=== PATIENT | male | born 1935 | race Caucasian/White ===

== ENCOUNTER 2018-09-15 07:59 | Day surgery (SDC) | payer MEDICARE ==
[~2018-09-15] VITALS: Ht 182.9 cm; Wt 69.4 kg
[~2018-09-15 07:59] MED LIST: LISI5 PO
[2018-09-15] MEDS ORDERED: ERGO400 (08:40)
[2018-09-15] MEDS ORDERED: Flonase 0.05% N16 GM (08:41)
[2018-09-15] MEDS ORDERED: ASPI81CH (08:41)
[2018-09-15] MEDS ORDERED: ALLEGRA ALLERG180 MG (08:41)
[2018-09-15] MEDS ORDERED: LISI5 (08:41)
--- NOTE | 2018-09-15 09:35 | NUR ---
09/15/18 0935 Sosa Kendrick PT SUCTIONED ORALLY DURING PROCEDURE. SMALL AMOUNT OF YELLOW BILE CONTENTS.
--- NOTE | 2018-09-15 10:06 | NUR ---
09/15/18 1006 Sosa Kendrick PT VOMIT X1 IN STEP DOWN. SMALL AMOUNT OF YELLOW BILE.
== END 2018-09-15 11:15 | disposition home or self-care (01) ==
LOC: ORSCSDS 07:59
PROVIDERS: Surgery
PROC: 0DBL8ZX Excision of Transverse Colon, Via Natural or Artificial Opening Endoscopic, Diagnostic (ICD-10-PCS; principal; 2018-09-15 09:15)
DX: K62.5 Hemorrhage of anus and rectum (principal); D12.3 Benign neoplasm of transverse colon; K44.9 Diaphragmatic hernia without obstruction or gangrene; I10 Essential (primary) hypertension; K21.9 Gastro-esophageal reflux disease without esophagitis; E78.5 Hyperlipidemia, unspecified; K57.30 Diverticulosis of large intestine without perforation or abscess without bleeding; Z87.891 Personal history of nicotine dependence; Z79.899 Other long term (current) drug therapy; Z79.82 Long term (current) use of aspirin
CPT/HCPCS: 88305; J2405; J7120

== ENCOUNTER 2019-12-23 17:36 | Emergency (ER) | payer MEDICARE ==
[~2019-12-23] VITALS: Ht 180.3 cm; Wt 63.0 kg
[~2019-12-23 17:36] MED LIST changes: +ALLEGRA ALLERG180 MG; +ASPI81CH; +ERGO400; +Flonase 0.05% N16 GM; +LISI5
[2019-12-23 20:26] LABS: Source, Urine Clean Catch
[2019-12-23 20:28] LABS: Bilirubin, Urine Neg (Neg); Blood, Urine Neg (Neg); Glucose Qualitative, Urine Neg (Neg); Ketones, Urine 1+ (Neg); Leukocyte Esterase, Urine Neg (Neg); Nitrite, Urine Neg (Neg); Protein, Urine Neg (Neg); Specific Gravity, Urine 1.015 (1.003-1.022); Urobilinogen, Urine NORM (Normal)
[2019-12-23 20:29] LABS: Appearance, Urine Clear (Clear); Color, Urine Yellow (P-Yellow)
== END 2019-12-23 20:29 | disposition home or self-care (01) ==
LOC: ER 17:36
PROVIDERS: Physician Assistant
DX: R10.32 Left lower quadrant pain (principal); R29.898 Other symptoms and signs involving the musculoskeletal system; E87.1 Hypo-osmolality and hyponatremia; C85.90 Non-Hodgkin lymphoma, unspecified, unspecified site; Z91.030 Bee allergy status; Z79.899 Other long term (current) drug therapy; Z79.82 Long term (current) use of aspirin
CPT/HCPCS: 74177; 81003; 83690; 96360-59; 99284-25; J7030; Q9967

== ENCOUNTER 2020-01-04 08:33 | Day surgery (SDC) | payer MEDICARE ==
--- NOTE | 2020-01-04 10:12 | NUR ---
PT AWAKE, ALERT UPON ARRIVAL TO STEP DOWN RECOVERY. C/O SOME DISCOMFORT IN HIS LEG. HAS PAIN PILLS AT HOME AND STATES HE WILL TAKE THESE WHEN HE LEAVES.
--- NOTE | 2020-01-04 10:20 | NUR ---
PT SPENDING MAJORITY OF TIME ON PHONE TALKING TO FRIENDS/FAMILY. NO C/O AT THIS TIME.
--- NOTE | 2020-01-04 10:27 | NUR ---
NEURO CHECK DONE. NOTED SIGNIFICANT LEFT LEG WEAKNESS. PT STATES THIS IS HIS BASELINE, BUT WILL CONTINUE TO MONITOR DURING RECOVERY PERIOD.
--- NOTE | 2020-01-04 10:33 | NUR ---
PT GIVEN HEADPHONES AND REMOTE FOR TV. NO C/O AT THIS TIME.
--- NOTE | 2020-01-04 10:38 | NUR ---
NEURO CHECK UNCHANGED.
--- NOTE | 2020-01-04 11:03 | NUR ---
REVIEWED DISCHARGE INSTRUCTIONS WITH PATIENT WHO VERBALIZES UNDERSTANDING OF ALL INSTRUCTIONS GIVEN. PT NOTIFYING TO COME PICK HIM UP AT 1120. PT CONTINUES TO HAVE NO C/O. NEURO CHECK REVEALS INCREASED MOVEMENT TO LEFT LOWER EXTREMITY. NO NUMBNESS OR TINGLING NOTED.
--- NOTE | 2020-01-04 11:07 | NUR ---
SAT AT EDGE OF BED WITHOUT DIFFICULTY. STOOD BUT UNABLE TO BEAR WEIGHT ON LEFT LEG AT THIS TIME. ASSISTED BACK TO BED AND WILL ATTEMPT STANDING AGAIN IN APPROX 20 MINUTES. UPDATED BY PATIENT.
--- NOTE | 2020-01-04 11:43 | NUR ---
POSITION CHANGES WITH ASSISTANCE OF THIS RN. NEEDS ASSISTANCE MOVING LEFT LEG. PT STATES THIS IS NORMAL FOR HIM.
--- NOTE | 2020-01-04 12:43 | NUR ---
PT DISCHARGED HOME. STAND TEST SUCCESSFUL - ABLE TO STEP AND MOVE INTO WHEELCHAIR. MOVEMENT TO LEFT LEG MUCH IMPROVED. REVIEWED DC INSTRUCTIONS WITH WHEN PATIENT TAKEN OUT TO CAR. SHE VERBALIZED UNDERSTANDING OF ALL INSTRUCTIONS GIVEN. PT ABLE TO GET INTO VEHICLE WITH MINIMAL ASSIST FROM THIS RN. INSTRUCTED TO BE ON PATIENT'S WEAKER SIDE AND ASSIST INTO HOUSE FOR SAFETY. SHE STATES SHE WILL DO THIS.
[2020-01-05 15:28] LABS: Performing Lab SYMBIODX; Test Name EMBEDDED TISSUE
== END 2020-01-04 22:41 | disposition home or self-care (01) ==
LOC: CT 08:33
PROVIDERS: Internal Medicine Hematology & Oncology
DX: C83.36 Diffuse large B-cell lymphoma, intrapelvic lymph nodes (principal); I10 Essential (primary) hypertension; E78.5 Hyperlipidemia, unspecified; K21.9 Gastro-esophageal reflux disease without esophagitis; N40.0 Benign prostatic hyperplasia without lower urinary tract symptoms; Z87.891 Personal history of nicotine dependence; Z79.899 Other long term (current) drug therapy
CPT/HCPCS: 49180; 77012

== ENCOUNTER → 2020-01-09 | Outpatient (CLI) | payer MEDICARE ==
[~2020-01-09] MED LIST changes: +NYST100000 PO; +XARELTO15 MG PO
[2020-01-09 17:18] LABS: Alanine Aminotransfer (ALT/SGP 27 U/L (12-78); Albumin, Blood 2.7 g/dL (3.4-5.0); Albumin/Globulin Ratio 0.8 (0.8-1.8); Alk Phos 79 U/L (50-136); Anion Gap 9 mmol/L (6-16); Aspartate Aminotrans (AST/SGOT 30 U/L (12-37); Bilirubin, Total 0.6 mg/dL (0.1-1.0); Blood Urea Nitrogen 27 mg/dL (8-24); Bun/Creatinine Ratio 39.9 (12.0-20.0); CO2, Blood 24 mmol/L (21-32); Calcium, Blood 8.6 mg/dL (8.5-10.1); Chloride, Blood 90 mmol/L (98-108); Creatinine, Blood 0.68 mg/dL (0.60-1.20); Globulin, Blood 3.4 g/dL (2.2-4.0); Glomerular Filtration Rate >60 (60-); Glucose, Blood 128 mg/dL (70-99); Lactate Dehydrogenase (Ld),Bld 331 U/L (100-240); Sodium, Blood 123 mmol/L (136-145); Total Protein, Blood 6.1 g/dL (6.4-8.2); Uric Acid, Blood 3.9 mg/dL (3.5-7.2)
== END | disposition home or self-care (01) ==
LOC: LAB 14:01 → LAB SHORT 14:01
PROVIDERS: Internal Medicine Hematology & Oncology
DX: C85.93 Non-Hodgkin lymphoma, unspecified, intra-abdominal lymph nodes (principal); R22.42 Localized swelling, mass and lump, left lower limb
CPT/HCPCS: 80053; 83615; 84550

== ENCOUNTER → 2020-01-11 | Outpatient (CLI) | payer MEDICARE ==
[2020-01-11 15:33] LABS: Bilirubin, Urine Neg (Neg); Blood, Urine Neg (Neg); Glucose Qualitative, Urine Neg (Neg); Ketones, Urine Neg (Neg); Leukocyte Esterase, Urine Neg (Neg); Nitrite, Urine Neg (Neg); Protein, Urine Neg (Neg); Specific Gravity, Urine 1.015 (1.003-1.022); Urobilinogen, Urine 1+ (Normal)
[2020-01-11 15:42] LABS: Appearance, Urine Clear (Clear); Color, Urine Yellow (P-Yellow)
[2020-01-11 15:43] LABS: Alanine Aminotransfer (ALT/SGP 42 U/L (12-78); Albumin, Blood 2.4 g/dL (3.4-5.0); Albumin/Globulin Ratio 0.8 (0.8-1.8); Alk Phos 80 U/L (50-136); Anion Gap 8 mmol/L (6-16); Aspartate Aminotrans (AST/SGOT 41 U/L (12-37); Bilirubin, Total 0.5 mg/dL (0.1-1.0); Blood Urea Nitrogen 31 mg/dL (8-24); Bun/Creatinine Ratio 46.8 (12.0-20.0); CO2, Blood 24 mmol/L (21-32); Chloride, Blood 98 mmol/L (98-108); Creatinine, Blood 0.66 mg/dL (0.60-1.20); Glomerular Filtration Rate >60 (60-); Glucose, Blood 124 mg/dL (70-99); Potassium, Blood 4.7 mmol/L (3.5-5.5); Sodium, Blood 130 mmol/L (136-145); Total Protein, Blood 5.4 g/dL (6.4-8.2)
== END | disposition home or self-care (01) ==
LOC: LAB 11:25 → LAB SHORT 11:25
PROVIDERS: Internal Medicine Hematology & Oncology
DX: R59.0 Localized enlarged lymph nodes (principal); R35.0 Frequency of micturition; R19.00 Intra-abdominal and pelvic swelling, mass and lump, unspecified site
CPT/HCPCS: 80053; 81003

== ENCOUNTER 2020-01-18 08:44 | Day surgery (SDC) | payer MEDICARE ==
[~2020-01-18] VITALS: Ht 182.9 cm; Wt 52.0 kg
--- NOTE | 2020-01-18 09:36 | NUR ---
Pt arrives via wheel chair incontinent of stool, pt had been on narcotics and became constipated according to . Pt then took laxitives to open pt up and now uncontinent of stool, it has now become more formed. Pt with weight loss started chemo the first of january with edema left thigh. Now left calf swollen.
[2020-01-18] MEDS ORDERED: BACTRIM DS TAB1 EACH UD (09:47)
[2020-01-18] MEDS ORDERED: FAMC250 PO (09:48)
[2020-01-18] MEDS ORDERED: ONDA4 PO (09:48)
[2020-01-18] MEDS ORDERED: Percocet 5-3251 EACH PO (09:49)
--- NOTE | 2020-01-18 13:44 | NUR ---
Pt is stable preparing for discharge home. Echo which was missed yesterday will now be done in the recovery room. Pt is now stable and discharge from the recovery room for first procedure. Addison Hanh will be doing the echo. Pt had bm, smear more solid. Pt was cleaned with baby shampoo and warm water. Attends on. Left popiteal area dressing dry and intact. Right groin site within normal limits doppler site. Pt is stable.
--- NOTE | 2020-01-18 13:48 | NUR ---
IV removed catheter intact #20 from left a/c.
--- NOTE | 2020-01-18 14:48 | NUR ---
PT discharged via wheel chair. Pt stable post echo. Home with . Pt and verbalizes understanding of procedure and post op care.
== END 2020-01-18 14:45 | disposition home or self-care (01) ==
LOC: MHTC 08:44
DX: I82.402 Acute embolism and thrombosis of unspecified deep veins of left lower extremity (principal); Z91.038 Other insect allergy status
CPT/HCPCS: 36005; 37187; 37191; 37248; 37249; 75820; 75825; 76937; 93306; 99152; 99153; C1725; C1757; C1760; C1769; C1880; C1887; C1894; J1644; J2250; J3010; J7030; Q9967

== ENCOUNTER → 2020-02-01 | Outpatient (CLI) | payer MEDICARE ==
[~2020-02-01] MED LIST changes: +ALLO300 PO; +ASPI81CH PO; +BACTRIM DS TAB1 EACH UD; +DOCU100 PO; -ERGO400; +ERGO400 PO; +FAMC250 PO; +HYDR1TAB94 PO; +Loratadine10 MG PO; +Millipred5 MG PO; +ONDA4 PO; +Percocet 5-3251 EACH PO; +Zofran4 MG PO; +[UNRECOGNIZED DRUG - OTHER] PO
[2020-02-01 18:27] LABS: Alanine Aminotransfer (ALT/SGP 17 U/L (12-78); Albumin, Blood 2.4 g/dL (3.4-5.0); Albumin/Globulin Ratio 0.8 (0.8-1.8); Alk Phos 78 U/L (50-136); Anion Gap 10 mmol/L (6-16); Aspartate Aminotrans (AST/SGOT 23 U/L (12-37); Bilirubin, Total 0.5 mg/dL (0.1-1.0); Blood Urea Nitrogen 16 mg/dL (8-24); CO2, Blood 24 mmol/L (21-32); Calcium, Blood 7.8 mg/dL (8.5-10.1); Chloride, Blood 92 mmol/L (98-108); Creatinine, Blood 0.62 mg/dL (0.60-1.20); Globulin, Blood 2.9 g/dL (2.2-4.0); Glomerular Filtration Rate >60 (60-); Glucose, Blood 97 mg/dL (70-99); Potassium, Blood 4.4 mmol/L (3.5-5.5); Sodium, Blood 126 mmol/L (136-145); Total Protein, Blood 5.3 g/dL (6.4-8.2)
== END | disposition home or self-care (01) ==
LOC: LAB SHORT 11:30 → LAB 11:30
PROVIDERS: Internal Medicine Hematology & Oncology
DX: C85.93 Non-Hodgkin lymphoma, unspecified, intra-abdominal lymph nodes (principal)
CPT/HCPCS: 80053

== ENCOUNTER → 2020-02-08 | Outpatient (CLI) | payer MEDICARE ==
[~2020-02-08] MED LIST changes: +EPIPEN0.3 MG/0.3 IM; +OXYC5 PO
[2020-02-08 19:52] LABS: Alanine Aminotransfer (ALT/SGP 20 U/L (12-78); Albumin, Blood 2.9 g/dL (3.4-5.0); Albumin/Globulin Ratio 1.2 (0.8-1.8); Alk Phos 105 U/L (50-136); Anion Gap 8 mmol/L (6-16); Aspartate Aminotrans (AST/SGOT 15 U/L (12-37); Bilirubin, Total 0.6 mg/dL (0.1-1.0); Blood Urea Nitrogen 21 mg/dL (8-24); CO2, Blood 25 mmol/L (21-32); Calcium, Blood 8.3 mg/dL (8.5-10.1); Chloride, Blood 92 mmol/L (98-108); Creatinine, Blood 0.66 mg/dL (0.60-1.20); Globulin, Blood 2.5 g/dL (2.2-4.0); Glomerular Filtration Rate >60 (60-); Glucose, Blood 104 mg/dL (70-99); Magnesium, Blood 1.8 mg/dL (1.6-2.4); Sodium, Blood 125 mmol/L (136-145); Total Protein, Blood 5.4 g/dL (6.4-8.2)
== END ==
LOC: LAB 14:30 → LAB SHORT 14:30
PROVIDERS: Internal Medicine Hematology & Oncology
DX: I10 Essential (primary) hypertension (principal); R59.0 Localized enlarged lymph nodes; C85.93 Non-Hodgkin lymphoma, unspecified, intra-abdominal lymph nodes
CPT/HCPCS: 80053; 83735

== ENCOUNTER 2020-02-09 00:27 | Day surgery (SDC) | payer MEDICARE ==
[~2020-02-09 00:27] MED LIST changes: -EPIPEN0.3 MG/0.3 IM; -OXYC5 PO
[2020-02-09] MEDS ORDERED: OXYC5 PO (12:31)
[2020-02-09] MEDS ORDERED: XARELTO15 MG PO (12:34)
[2020-02-09] MEDS ORDERED: EPIPEN0.3 MG/0.3 IM (12:35)
[2020-02-13] MEDS ORDERED: FAMC250 PO (12:00)
== END 2020-02-09 10:05 | disposition home or self-care (01) ==
LOC: ATC 00:27
DX: C85.93 Non-Hodgkin lymphoma, unspecified, intra-abdominal lymph nodes (principal); R59.0 Localized enlarged lymph nodes; I10 Essential (primary) hypertension; E78.5 Hyperlipidemia, unspecified; K21.9 Gastro-esophageal reflux disease without esophagitis; Z90.49 Acquired absence of other specified parts of digestive tract; Z87.891 Personal history of nicotine dependence; N40.0 Benign prostatic hyperplasia without lower urinary tract symptoms; Z86.010 Personal history of colon polyps; Z79.01 Long term (current) use of anticoagulants; Z79.899 Other long term (current) drug therapy
CPT/HCPCS: 36415; 36430; 86850; 86900; 86901; 86923; J1642; J7050; P9016

== ENCOUNTER 2020-02-18 17:24 | Inpatient (IN) | payer MEDICARE ==
[~2020-02-18] VITALS: Ht 180.3 cm; Wt 58.1 kg
[~2020-02-18 17:24] MED LIST changes: +AZIT500 PO; +BACTRIM DS TAB1 EAC1 UD; +CEFU500T30 PO; +CEPACOL SORE T1 EAC2 MM; +CVS PROBIOTIC1 EAC2 PO; +EPIPEN0.3 MG/0.3 IM; -ERGO400 PO; +MEGESTROL400 MG/11 PO; +MIRALAX17 GM PO; +OXYC5 PO; +Vitamin D2000 UNIT PO
[2020-02-18 17:55] LABS: BASOPHILS ABSOLUTE AUTO 0.05 K/mm3 (0.00-0.23); BASOPHILS PERCENT AUTO 0 % (0-2); EOSINOPHILS ABSOLUTE AUTO 0.01 K/mm3 (0.00-0.68); EOSINOPHILS PERCENT AUTO 0 % (0-6); Hematocrit 28.9 % (37.0-53.0); Hemoglobin 9.4 g/dL (13.5-17.5); IMMATURE GRAN ABSOLUTE AUTO 0.98 K/mm3 (0.00-0.10); IMMATURE GRAN PERCENT AUTO 3 % (0-1); LYMPHOCYTES ABSOLUTE AUTO 2.98 K/mm3 (0.84-5.20); LYMPHOCYTES PERCENT AUTO 10 % (21-46); MONOCYTES ABSOLUTE AUTO 4.63 K/mm3 (0.16-1.47); MONOCYTES PERCENT AUTO 16 % (4-13); Mean Corpuscular HGB 28.9 pg (26.0-34.0); Mean Corpuscular HGB Conc 32.5 g/dL (31.5-36.5); Mean Corpuscular Volume 89 fL (80-100); Mean Platelet Volume 9.2 fL (9.1-12.4); NEUTROPHILS PERCENT AUTO 71 % (41-73); NRBC ABSOLUTE 0.02 K/mm3 (0.00-0.02); NRBC Auto 0.1 /100 WBC (0.0-0.2); Platelet Count 89 K/mm3 (150-400); RDW Coefficient Variation 17.5 % (11.7-14.2); RDW Standard Deviation 55.2 fL (35.1-46.3); Red Blood Cell Count 3.25 M/mm3 (4.30-5.90); White Blood Cell Count 29.65 K/mm3 (4.00-11.30)
[2020-02-18 18:08] LABS: Alanine Aminotransfer (ALT/SGP 14 U/L (12-78); Albumin, Blood 2.4 g/dL (3.4-5.0); Albumin/Globulin Ratio 0.8 (0.8-1.8); Alk Phos 92 U/L (50-136); Anion Gap 9 mmol/L (6-16); Aspartate Aminotrans (AST/SGOT 22 U/L (12-37); Bilirubin, Total 1.1 mg/dL (0.1-1.0); Blood Urea Nitrogen 39 mg/dL (8-24); Bun/Creatinine Ratio 51.8 (12.0-20.0); CO2, Blood 24 mmol/L (21-32); Calcium, Blood 8.7 mg/dL (8.5-10.1); Chloride, Blood 98 mmol/L (98-108); Creatinine, Blood 0.75 mg/dL (0.60-1.20); Globulin, Blood 3.1 g/dL (2.2-4.0); Glomerular Filtration Rate >60 (60-); Glucose, Blood 112 mg/dL (70-99); Magnesium, Blood 2.2 mg/dL (1.6-2.4); Potassium, Blood 4.5 mmol/L (3.5-5.5); Sodium, Blood 131 mmol/L (136-145); Total Protein, Blood 5.5 g/dL (6.4-8.2)
--- NOTE | 2020-02-18 20:08 | NUR ---
multiple phone calls today with and trying to keep pt home. [facility] came today to follow up on pt and to discuss plan of care and felt it was best to return to hospital. pt his hiccups, photo senstitive non verbal nonds yes or no to questions. frail chacectic. struggled with dnr status. was to have hospice consult at home tomorrow. suggest call barbara first thing in morning for plan of care and to discuss prognosis with .
[2020-02-18] MEDS ORDERED: AZIT500 PO (21:52)
[2020-02-18] MEDS ORDERED: CEPACOL SORE T1 EAC4 MM (21:53)
[2020-02-18] MEDS ORDERED: LACT (21:54)
[2020-02-18] MEDS ORDERED: CEFU500T30 PO (21:54)
[2020-02-18] MEDS ORDERED: FLONASE ALLERG9.9 ML (21:54)
[2020-02-18] MEDS ORDERED: MEGESTROL400 MG/11 PO (21:55)
[2020-02-18] MEDS ORDERED: ONDA4 PO (21:56)
[2020-02-18] MEDS ORDERED: Percocet 5-3251 EACH PO (21:57)
--- NOTE | 2020-02-18 22:00 | NUR ---
PT TO PCU ROOM 8 FROM ED AT 2145. PT TRANSFERRED TO PCU BED WITH TRANSFER SHEET. PT'S AT BEDSIDE TO ASSIST WITH ADMISSION HISTORY AND MED REC. PT APPEARS FRAIL, WEAK. PT SPEAKS VERY LITTLE AND DEFERS TO . PT REQUESTING "ROXICODONE" FOR PAIN. EXPLAINED THAT PT IS NPO. MEDICATED WITH FENTANYL PER EMAR. PT'S LLE SWOLLEN AND PAINFUL D/T DVT. PT DENIES PAIN ELSEWHERE AT THIS TIME. PT HAS PRODUCTIVE COUGH, THICK BROWN SPUTUM. LUNG SOUNDS CLEAR/DIM T/O. PT ON 2L NC TO MAINTAIN SATS GREATER THAN 90% PT INCONTINENT OF URINE, WILL OBTAIN URINE SAMPLE WHEN ABLE TO GET A CLEAN CATCH. NS@75 ML/HR INFUSING INTO LAC. SEE FULL ADMISSION ASSESSMENT
--- NOTE | 2020-02-19 00:45 | NUR ---
PT CONTINUES TO EXPERIENCE SIGNIFICANT PAIN, CALL TO DR. MILTON. ORDER FOR 1 MG DILAUDID Q6.
[2020-02-19 03:27] LABS: BASOPHILS PERCENT AUTO 0 % (0-2); EOSINOPHILS PERCENT AUTO 0 % (0-6); Hematocrit 26.6 % (37.0-53.0); Hemoglobin 8.7 g/dL (13.5-17.5); IMMATURE GRAN PERCENT AUTO 5 % (0-1); LYMPHOCYTES ABSOLUTE AUTO 1.92 K/mm3 (0.84-5.20); LYMPHOCYTES PERCENT AUTO 6 % (21-46); MONOCYTES ABSOLUTE AUTO 4.42 K/mm3 (0.16-1.47); MONOCYTES PERCENT AUTO 13 % (4-13); Mean Corpuscular HGB 29.5 pg (26.0-34.0); Mean Corpuscular HGB Conc 32.7 g/dL (31.5-36.5); Mean Corpuscular Volume 90 fL (80-100); Mean Platelet Volume 9.2 fL (9.1-12.4); NEUTROPHILS ABSOLUTE AUTO 25.12 K/mm3 (1.96-9.15); NEUTROPHILS PERCENT AUTO 76 % (41-73); NRBC ABSOLUTE 0.04 K/mm3 (0.00-0.02); NRBC Auto 0.1 /100 WBC (0.0-0.2); Platelet Count 69 K/mm3 (150-400); RDW Coefficient Variation 17.6 % (11.7-14.2); RDW Standard Deviation 55.5 fL (35.1-46.3); Red Blood Cell Count 2.95 M/mm3 (4.30-5.90); White Blood Cell Count 33.16 K/mm3 (4.00-11.30)
[2020-02-19 03:45] LABS: Alanine Aminotransfer (ALT/SGP 12 U/L (12-78); Albumin, Blood 2.2 g/dL (3.4-5.0); Albumin/Globulin Ratio 0.8 (0.8-1.8); Alk Phos 83 U/L (50-136); Anion Gap 7 mmol/L (6-16); Aspartate Aminotrans (AST/SGOT 22 U/L (12-37); Bilirubin, Total 1.3 mg/dL (0.1-1.0); Blood Urea Nitrogen 39 mg/dL (8-24); Bun/Creatinine Ratio 46.4 (12.0-20.0); CO2, Blood 23 mmol/L (21-32); Calcium, Blood 8.5 mg/dL (8.5-10.1); Chloride, Blood 104 mmol/L (98-108); Creatinine, Blood 0.84 mg/dL (0.60-1.20); Globulin, Blood 2.8 g/dL (2.2-4.0); Glomerular Filtration Rate >60 (60-); Glucose, Blood 116 mg/dL (70-99); Magnesium, Blood 2.3 mg/dL (1.6-2.4); Potassium, Blood 4.3 mmol/L (3.5-5.5); Sodium, Blood 134 mmol/L (136-145)
--- NOTE | 2020-02-19 04:41 | NUR ---
PT IRRITABLE AND CONTINUES TO BE IN PAIN. PAIN NOT ALLEVIATED BY DILAUDID AND FENTANYL. CALL TO DR. MILTON, ORDER FOR FENTANYL PROPELLER INSPECTOR-STANDARD DOSE (NO CONTINUOUS DOS). SPOKE WITH GRANT IN PHARMACY TO REVIEW ORDER. PT UPDATED ON ORDER.
--- NOTE | 2020-02-19 05:02 | NUR ---
SHIFT SUMMARY NO ACUTE CHANGES SINCE ADMISSION. PT CONTINUES TO REPORT UNRESOLVED PAIN, AWAITING FENTANYL BARKER OPERATOR. PT WEAK BUT ABLE TO REPOSITION SELF. SEE PREVIOUS NOTES FROM THIS SHIFT. WILL REPORT TO DAYSHIFT NURSE.
--- NOTE | 2020-02-19 05:56 | NUR ---
FENTANYL MEDICAL RECORD ASSISTANT STARTED, 25 MCG LOADING DOSE, 10 MCG Q15 MINS. REVIEWED USE OF MEDICAL RECORD ASSISTANT WITH PT.
--- NOTE | 2020-02-19 07:43 | NUR ---
ASSUMED CARE AT 0700, REPORT FROM OLIVIA TATUM. RESTING IN BED IN HIGH FOWLERS A/A/OX4, PLAN OF CARE REVIEWED WITH PT, REVIEWED TOBACCO PRIZER AND HOW TO USE. PT DEMONSTRATED USE OF BUTTON. DENIES NEEDS AT THIS TIME.
--- NOTE | 2020-02-19 11:15 | NUR ---
Called to room urgently per nursing staff due to pt's HR elevated and he was minimally verbally responsive. [facility] RN had spoken to pt and earlier this am and made plan to meet and discuss/goals/plan of care later today. RN called to update and she is on her way in. I introduced myself to pt sitting in chair, slumped slighly, with yankaur suction in hand and in mouth. I explained his current cardiac s/s to him and asked him if he would want us to resuscitate him if his heart were to stop or have a nonfunctioning rhythm. Float PhlebotomistTristian and pt's nurse, Cherelle, were present also. Without hesitation, pt shook his head no. I reworded the question to confirm his wishes and he said no, he did not want CPR or ventilation. He added, "It's not that I want to . I just don't want that. He is cachectic and looks profoundly exhausted. WHen asked if we could help him back to bed, he was in agreement and assisted two of us in transferring him back to his bed and repositioning him. Nonverbal indicators noted expression of pain with movement and breathing at 6/10. Once pt was back in bed and was able to rest for a couple minutes he was able to verbalize some requests and feelings about what he would like. His number one request is to have a sip of water. I reviewed current goals of care and comfort care with him, explaining he was at high risk for aspiration with sips of water but if he chose comofrt care that would be allowed. Pt was able to show some dry humor despite his obvious discomfort and misery. He has a fentanyl LABORER SALVAGE and was reinstructed on how to use it. He did push the botton while speaking with us. I left him speaking with Float Phlebotomist and called with report. VO obtained and enetered for DNR per pt's stated wishes. Nurse and charge nurse informed. is on her way in.
--- NOTE | 2020-02-19 11:41 | NUR ---
Pt sitting in chair upon arrival. Initial Pt was not attempting to be verbal when answer questions and just noding his head and pointing. Pt eventually does start speaking. Pt reports pain in his scrotum but does not verbalize intensity. Called and spoke with Pt's Fany. Engaged in therapeutic discussion regarding goals of care including hospice. Fany reports she has been considering this option and is leaning towards this option. Fany is tearful and this RN offered emotional support. Fany will be in shortly to visit and will continue conversation. Fany expresses appreciation of call. Palliative Care will remain available.
--- NOTE | 2020-02-19 12:16 | NUR ---
Spoke with Palliative Care RN Tammy and discussed case. Tammy had discussion with Pt regarding his code status with Pt choosing against any resuscitation efforts and wants to be DNR. Tammy placed DNR order in [facility] after discussion with hospitalist. Pt's Fany has arrived. Engaged in therapeutic discussion with Pt and Fany regarding goals of care. Discussed comfort care and educated on comfort care philosophy with V/U made by Fany and Pt noding his head up and down indicating yes for understanding. Offered emotional support to Fany as she is tearful throughout visit. Discussed the possiblity of Pt passing away here in the hospital and will discuss hospice options if needed. Fany expresses appreciation of visit and reports no other concerns at this time. Spoke with Bedside RN Paulina and machine operator picker Denise prior to visit. Discussed case and concerns. Called and spoke with Dr Arteaga. Discussed case and Pt's wishes. Placed order for comfort care, comfort care order set, discontinued maintenance medications, and in house transfer to medical floor per V/O from Dr Arteaga. Palliative Care will remain available for symptom management and therapeutic visits.
--- NOTE | 2020-02-19 12:59 | NUR ---
Spiritual care visit conducted. Patient is hunched over on the chair and awake. I enter room with Palliative RN Nighat Sommers and patient's RN Paulina. When I am left alone with patient, patient talks about his difficult night in which he felt very uncomfortable. Patient asks me to call Dr. Dow's office and I call, thenI put the phone up to patient's ear. Patient explains that he can't make his appointment because he is in the hospital and the medical office receptionist assistant asks about a future date and patient states that "unfortunately, I may not be around that long." Patient talks with me about an inner pain. Patient's spouse Fany enters patient's rm and is tearful. I let them have time together. I will continue to remain available to patient and family.
--- NOTE | 2020-02-19 14:57 | NUR ---
PT TRANSFERED TO [facility]. PT FENT PUMP IN PLACE. BUTTON IN HAND. PT & ORIENTED TO ROOM. MARGIE LIGHT IN REACH. PT SUPPLIED WITH ORAL SWABS AND SEIRRA MIST FOR FLAVOR. WILL CONTINUE TO MONITOR FOR COMFORT. SUCTION AT BEDSIDE.
--- NOTE | 2020-02-19 16:25 | NUR ---
DIFFICULTY PRESSING LINE FISHER PUMP BUTTON. PT HAVING DIFFICULTY PRESSING LINE FISHER PUMP BUTTON. DR. BARNARD NOTIFIED. AWAITING ORDERS.
--- NOTE | 2020-02-19 18:11 | NUR ---
SHIFT SUMMARY PT SWITCHED TO MORPHINE CONTINUOUS LIQUIFIED NATURAL GAS TECHNICIAN PUMP. RATE CHANGED FROM 6 MG/HR TO 4 MG/HR PER DR. BARNARD DUE TO PUMP INABILITY TO GO UP TO 6. PT BATHED THIS SHIFT. SUCTION AT BEDSIDE & AT BEDSIDE. WILL CONTINUE TO MONITOR COMFORT UNTIL TURNOVER IS COMPLETE.
--- NOTE | 2020-02-19 20:32 | NUR ---
PT has a morphine SHIPYARD PAINTER plus continous 4 mg hr & 2 mg Q 10 min ferry hand 20 mg 4 hour lockout. Reports adeq pain control.
--- NOTE | 2020-02-19 22:39 | NUR ---
PT continues on morphine LITIGATION COORDINATOR with helpful effect. Fany present & supportive. PT self suction & had sips tea. Reports helpful effect of morphine LITIGATION COORDINATOR. Oxygen 2 l nc for dyspnea.
--- NOTE | 2020-02-20 04:25 | NUR ---
84 year old MAle continues on morphine MARKETING OUTREACH COORDINATOR t continous 4 mg hr for confort measures with good control of pain, anxiety, air hunger. Wide Fany at bedside supportive. PT self suctions prn while awake, wearing oxygen for comfort.
--- NOTE | 2020-02-20 10:13 | NUR ---
Received call from Pt's spouse Fany. Answered questions regarding symptom management and educated on hospice philosophy. Instructed on agenies available to choose from. Fany expresses appreciation of conversation and reports no other concerns at this time. Pt resting in bed with his eyes closed upon arrival. Pt opens his eyes to gentle verbal stimuli and touch. Pt non verbal but is able to respond to questions by noding his head. Pt denies pain at this time. Pt apppears comfortable with no S/S of distress at this time. Spoke with Bedside DEEPTI Sandhu and discussed case. Palliative Care will remain available for symptom management and therapeutic visits.
--- NOTE | 2020-02-20 11:51 | NUR ---
Spiritual care visit conducted. Patient is lying in bed and staring at the ceiling. Patient does not even acknowledge my presence until I explain that I am the miguel that yesterday he told has a bad haircut. He looked over at me and smiled. That was the extent of his engagement with me. I talked with patient about the issues of the heart and about the things that may bring him a sense of peace at this time. I tell patient that I will come back and play guitar for him and he smirked (I was not sure what that meant). I will continue to remain available to patient and family.
--- NOTE | 2020-02-20 14:47 | NUR ---
Spiritual care visit conducted. I provided 45 minutes of therapeutic soft guitar music and prayer. Patient showed no change. Patient's Fany meets me in the hallway and we talk about what is happening with patient and with Fany. She explains that she doesn't want to take him home in his present state for fear of not being able to manage his needs at the level the hospital can. We also discuss Fany's emotional status and the mass of thoughts that are whirling around in her head. I listen empathically, normalize her experience, reinforce helpful attitudes and practices and provide a calming presence. I will continue to remain available to patient and family.
--- NOTE | 2020-02-20 15:50 | NUR ---
SHIFT SUMMARY PT IS NOT AWAKE OR ORIENTED HE CONTINUES ON COMFORT CARE AND HAS HAD NO S/S OF PAIN OR DISCOMFORT. HE CONTINUES ON THE MOTORCYCLE REPAIR SHOP SUPERVISOR PUMP FOR PAIN MANAGEMENT. THE HAS BEEN AT THE BEDSIDE MOST OF THE DAY WITH THE EXCEPTION OF A COUPLE HOURS WHEN SHE WENT HOME TO CHECK ON HER DOGS. PALLIATIVE CARE HAS TALKED WITH THE AND IS HELPING [facility]. PT IS RESTING IN BED WITH EYES CLOSED IN NO DISTRESS WITH AT THE BEDSIDE.
--- NOTE | 2020-02-20 20:07 | NUR ---
PT on Morphine SUPERIOR COURT JUSTICE 2 mg Q 10 mins plus 4 mg hr continous. Rouses & opens eyes, at bedside supportive. Appears comfortable with current pain meds sleeping with deep even respirations. Turning repositioning for comfort.
--- NOTE | 2020-02-21 01:35 | NUR ---
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 Transitioning with mottling of bilat feet. Nonverbal opens eyes, keeps eyes open. continues on morphine PUBLIC ADDRESS SYSTEM OPERATOR t continous via iv. Fany with PT 50 years at bedside & supportive. She is hoping he can continue on comfort measures at [facility]. NO oral intake, incontinent of small amt urine x 1. Support offered to & PT.
--- NOTE | 2020-02-21 03:50 | NUR ---
sleeping appears comfortable. Less alert as he continues on comfort measures with at bedside.
--- NOTE | 2020-02-21 05:59 | NUR ---
PT o455 am with present. DR Deleon updated on expiration at 0520.
--- NOTE | 2020-02-21 06:32 | NUR ---
mortuary of Choice per Dianes call is [facility]. roll clamp operator Stacy Notified.
== END 2020-02-21 04:55 | DRG 871 ==
LOC: ER 17:24 → PCU 21:08 → MEDS 02-19 14:33
PROVIDERS: Emergency Medicine; Nurse Practitioner Acute Care; ADMIT Internal Medicine
DX: A41.9 Sepsis, unspecified organism (principal); J18.9 Pneumonia, unspecified organism; J96.01 Acute respiratory failure with hypoxia; G93.41 Metabolic encephalopathy; E43 Unspecified severe protein-calorie malnutrition; E87.1 Hypo-osmolality and hyponatremia; C83.30 Diffuse large B-cell lymphoma, unspecified site; Z68.1 Body mass index [BMI] 19.9 or less, adult; R65.20 Severe sepsis without septic shock; I10 Essential (primary) hypertension; M10.9 Gout, unspecified; Z51.5 Encounter for palliative care; Z86.718 Personal history of other venous thrombosis and embolism; Z92.21 Personal history of antineoplastic chemotherapy
CPT/HCPCS: 36415; 71046; 80053; 83605; 83735; 85025; 87040; 92610; 93005; 93010; 96361; 96365; 97110; 97162; 99285-25; J0692; J1170; J2270; J2543; J3010; J3370; J7030; J7050